=== PATIENT | female | born 1940 | race Hispanic/Latino ===

== ENCOUNTER 2022-10-07 13:30 | Emergency (ER) | payer OTHER, BC ==
[2022-10-07] MEDS ORDERED: Boostrix 0.5 ML (Tdap) VIAL (>/=7 yrs of age) ONE (13:58)
[2022-10-07] MEDS ORDERED: Bacitracin 1 PK ONE (14:35)
== END 2022-10-07 14:43 | disposition home or self-care (01) ==
LOC: CSHERS 13:30
DX: S80.812A Abrasion, left lower leg, initial encounter (principal); E11.9 Type 2 diabetes mellitus without complications; E78.00 Pure hypercholesterolemia, unspecified; I10 Essential (primary) hypertension; Z23 Encounter for immunization; F17.210 Nicotine dependence, cigarettes, uncomplicated; W01.0XXA Fall on same level from slipping, tripping and stumbling without subsequent striking against object, initial encounter
CPT/HCPCS: 90471; 90715